=== PATIENT | female | born 1960 | race Caucasian/White ===

== ENCOUNTER → 2016-11-12 | Emergency (ER) | payer OTHER ==
[~2016-11-12] MED LIST: Ibuprofen TAB* 600 MG PO ONE
[2016-11-12 18:25] VITALS: BP 178/108
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
== END | disposition home or self-care (01) ==
LOC: ED 18:14
DX: S46.912A Strain of unspecified muscle, fascia and tendon at shoulder and upper arm level, left arm, initial encounter (principal); V49.9XXA Car occupant (driver) (passenger) injured in unspecified traffic accident, initial encounter; Y93.9 Activity, unspecified; Y92.9 Unspecified place or not applicable; Y99.9 Unspecified external cause status
CPT/HCPCS: 99282